=== PATIENT | male | born 2005 | race Caucasian/White ===

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

== ENCOUNTER → 2025-06-25 11:59 | Outpatient (REF) | payer OTHER, SELFPAY ==
[2025-06-25 13:12] VITALS: BP 121/75; BP_SYST 79
[2025-06-25 13:18] LABS: INR 0.94; PT 12.8 Sec (11.4-14.6)
[2025-06-25 14:35] VITALS: BP 136/93; BP_SYST 82
[2025-06-25 15:05] VITALS: BP 128/73; BP_SYST 85
[2025-06-25 16:00] LABS: CSF Color Colorless; CSF Tube # Clarity Clear; Red Cell Count/CSF 48 mm^3; White Blood Cell Count/CSF 1 mm^3 (0-5)
[2025-06-25 16:02] LABS: CSF Color Other
[2025-06-25 16:30] LABS: Red Cell Count/CSF 814 mm^3; White Cell Count/CSF 1 mm^3 (0-5)
[2025-06-25 21:33] LABS: Spinal Fluid Granulocytes 17 %; Spinal Fluid Lymphocytes 67 %; Spinal Fluid Macrophages 16 %
[2025-06-25 21:39] LABS: CSF Granulocytes 10 %; Spinal Fluid Macrophages 10 %
== END ==
LOC: RADI 11:59
PROVIDERS: ATTENDING PHYSICIAN Psychiatry & Neurology Neurology
DX: D89.89 Other specified disorders involving the immune mechanism, not elsewhere classified (principal); F42.9 Obsessive-compulsive disorder, unspecified
CPT/HCPCS: 62328; 82040; 82042; 82164; 82784; 82945; 83873; 83916; 84157; 85610; 86255; 86592; 86663; 86664; 86665; 86694; 87476; 87483; 87798; 89051